=== PATIENT | male | born 1950 ===

== ENCOUNTER 2019-04-22 22:36 | Inpatient (IN) | payer OTHER ==
[2019-04-23] MEDS: SOD CHLORIDE 0.45% 1,000 ML IV ×3 (00:38→16:00)
[2019-04-23] MEDS ORDERED: DOCUSATE SODIUM 100 MG CAP PO (01:00)
[2019-04-23] MEDS ORDERED: HYDROCODONE/APAP (5/325) TAB PO (01:00)
[2019-04-23] MEDS ORDERED: LORAZEPAM 2 MG INJ IV (01:00)
[2019-04-23] MEDS ORDERED: MAGNESIUM HYDROXIDE 30ML CUP PO (01:00)
[2019-04-23] MEDS ORDERED: morphine 2 MG INJ IV (01:00)
[2019-04-23] MEDS ORDERED: ACETAMINOPHEN 325 MG TAB PO (01:00)
[2019-04-23] MEDS ORDERED: hydrALAzine 20 MG INJ IV (01:00)
[2019-04-23] MEDS ORDERED: ALBUTEROL/IPRATROPIUM (NEB) 3 ML AMP HHN (01:00)
[2019-04-23] MEDS ORDERED: ONDANSETRON 4 MG INJ IV (01:00)
[2019-04-23] MEDS ORDERED: NACL 0.9% 3 ML SYG IV (01:00)
[2019-04-23] MEDS ORDERED: NITROGLYCERIN (SL) 0.4 MG TAB SL (01:00)
[2019-04-23] MEDS ORDERED: GLUCOSE GEL 15 GRAM TUBE PO ×2 (01:15)
[2019-04-23] MEDS ORDERED: GLUCAGON 1 MG INJ IM (01:15)
[2019-04-23] MEDS ORDERED: GLUCOSE GEL 15 GRAM TUBE BUCCAL (01:15)
[2019-04-23] MEDS ORDERED: DEXTROSE 50% 50 ML SYRINGE IV ×2 (01:15)
[2019-04-23] MEDS: INSULIN ASPART [NOVOLOG] 3 ML PEN SC ×6 (01:56→21:40)
[2019-04-23] MEDS ORDERED: ACCU-CHEK XX (02:00)
[2019-04-23 06:06] LABS: INR 0.95; PROTIME 12.8 Sec (11.9-14.9)
[2019-04-23 06:07] LABS: PARTIAL THROMBOPLASTIN TIME 35.4 Sec (23.0-35.0)
[2019-04-23] MEDS: PANTOPRAZOLE (EC) 40 MG TAB PO (06:25)
[2019-04-23] MEDS: ATORVASTATIN 80 MG TAB PO (06:25)
[2019-04-23 06:40] LABS: FREE T4 (FREE THYROXINE) 1.16 ng/dl (0.78-2.44)
[2019-04-23] MEDS: ASPIRIN (EC) 325 MG TAB PO (09:23)
[2019-04-23] MEDS: HEPARIN 5,000 UNIT/1 ML VIAL SC ×2 (09:34→21:40)
[2019-04-23] MEDS: ACCU-CHEK XX ×2 (17:30→20:00)
[2019-04-23] MEDS: LINAGLIPTIN 5 MG TABLET PO (18:29)
[2019-04-23] MEDS: ALFUZOSIN (SR) 10 MG TAB PO (21:11)
[2019-04-24] MEDS: INSULIN ASPART [NOVOLOG] 3 ML PEN SC ×3 (01:00→08:14)
[2019-04-24] MEDS: PANTOPRAZOLE (EC) 40 MG TAB PO (05:57)
[2019-04-24] MEDS: SOD CHLORIDE 0.45% 1,000 ML IV (06:04)
[2019-04-24 06:10] LABS: ADD MAN DIFF? NO
[2019-04-24 06:34] LABS: BASOPHILS % 0.7 % (0.0-2.0); EOSINOPHILS # 0.2 10^3/ul (0.0-0.5); EOSINOPHILS % 2.6 % (0.0-7.0); HEMATOCRIT 40.5 % (42.0-52.0); HEMOGLOBIN 13.5 g/dl (14.0-18.0); LYMPHOCYTES # 2.1 10^3/ul (0.8-2.9); LYMPHOCYTES % 35.8 % (15.0-51.0); MEAN CORPUSCULAR HEMOGLOBIN 28.6 pg (29.0-33.0); MEAN CORPUSCULAR HGB CONC 33.3 g/dl (32.0-37.0); MEAN CORPUSCULAR VOLUME 85.8 fl (82.0-101.0); MEAN PLATELET VOLUME 10.2 fl (7.4-10.4); MONOCYTE # 0.4 10^3/ul (0.3-0.9); MONOCYTES % 7.6 % (0.0-11.0); NEUTROPHIL # 3.1 10^3/ul (1.6-7.5); PLATELET COUNT 277 10^3/UL (140-415); RED BLOOD COUNT 4.72 10^6/ul (4.70-6.10); RED CELL DISTRIBUTION WIDTH 12.6 % (11.5-14.5)
[2019-04-24 06:34] LABS: WHITE BLOOD COUNT 5.8 10^3/ul (4.8-10.8)
[2019-04-24 07:00] LABS: ANION GAP 6 (5-13); BLOOD UREA NITROGEN 16 mg/dl (7-20); CARBON DIOXIDE 26 mmol/L (21-31); CHLORIDE 104 mmol/L (97-110); CHOLESTEROL 121 mg/dl (100-200); Estimated GFR > 60 mL/min (>60); GLUCOSE 135 mg/dl (70-220); HDL CHOLESTEROL 40 mg/dl (31-75); LDL CHOLESTEROL,CALCULATED 68 mg/dl; MAGNESIUM 1.8 mg/dl (1.7-2.5); PHOSPHORUS 4.2 mg/dl (2.5-4.9); POTASSIUM 4.4 mmol/L (3.5-5.1); SODIUM 136 mmol/L (135-144); TRIGLYCERIDES 63 mg/dl (0-149)
[2019-04-24] MEDS: ACCU-CHEK XX (07:00)
[2019-04-24] MEDS: ASPIRIN (EC) 325 MG TAB PO (08:37)
[2019-04-24] MEDS: LINAGLIPTIN 5 MG TABLET PO (08:38)
[2019-04-24 08:41] LABS: HEMOGLOBIN A1C 7.4 % (0-5.9)
[2019-04-24] MEDS: HEPARIN 5,000 UNIT/1 ML VIAL SC (09:00)
== END 2019-04-24 10:52 | disposition home or self-care (01) | DRG 69 ==
LOC: 6WM 22:36
PROVIDERS: Internal Medicine
DX: G45.9 Transient cerebral ischemic attack, unspecified (principal); E11.8 Type 2 diabetes mellitus with unspecified complications; I10 Essential (primary) hypertension; E78.00 Pure hypercholesterolemia, unspecified; N40.0 Benign prostatic hyperplasia without lower urinary tract symptoms; F17.200 Nicotine dependence, unspecified, uncomplicated
CPT/HCPCS: 70551; 80048; 80061; 82962; 83036; 83735; 84100; 84439; 84443; 85025; 85610; 85730; 87081; 92610; 93306; 93880; 97161